=== PATIENT | female | born 2000 | race African-American/Black ===

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

== ENCOUNTER 2022-04-04 17:30 | Emergency (ER) | payer OTHER ==
[2022-04-04 18:24] VITALS: BP 104/71; PULSE 83; RESP 18; TEMP 98.4; BMI 23.6
[2022-04-04] MEDS ORDERED: ACETAMINOPHEN 325 MG TABLET (FP) PO ONE (18:44)
[2022-04-04] MEDS ORDERED: IBUPROFEN 600 MG TABLET (FP) PO ONE ×2 (18:44→18:50)
[2022-04-04] MEDS ORDERED: ACETAMINOPHEN 325 MG TABLET (FP) ONE (18:49)
== END 2022-04-04 18:53 | disposition home or self-care (01) ==
LOC: JER 17:30 → JERFT 17:30
DX: K08.89 Other specified disorders of teeth and supporting structures (principal)
CPT/HCPCS: 99283-25

== ENCOUNTER 2023-07-06 16:38 | Emergency (ER) | payer OTHER ==
[2023-07-06 16:53] VITALS: BP 111/70; PULSE 71; RESP 16; TEMP 98.3; BMI 19.8
[2023-07-06 18:19] LABS: HCG,QUALITATIVE URINE Negative
[2023-07-06 18:20] LABS: EPI CELLS 11 /uL (0-25.1); HYALINE CASTS 1 /uL (0-3.1); URINE APPEARANCE TURBID; URINE BACTERIA 371 /uL (0-1359); URINE BILIRUBIN NEGATIVE (NEGATIVE); URINE COLOR YELLOW; URINE GLUCOSE (UA) NEGATIVE (NEGATIVE); URINE KETONE TRACE (NEGATIVE); URINE LEUK ESTERASE NEGATIVE (NEGATIVE); URINE NITRITE NEGATIVE (NEGATIVE); URINE PROTEIN NEGATIVE (NEGATIVE); URINE RBC 30.4 /uL (0-23.9); URINE WBC 3 /uL (0-25.8)
[2023-07-06 20:33] LABS: SYPHILIS W/ RPR CONF NON-REACTIVE (NONREACTIVE)
[2023-07-06 21:02] LABS: HIV INTERPRETATION NEGATIVE (NEGATIVE)
== END 2023-07-06 19:08 | disposition home or self-care (01) ==
LOC: JERFT 16:38 → JER 16:38 → JERFT 19:08
DX: N89.8 Other specified noninflammatory disorders of vagina (principal); N93.9 Abnormal uterine and vaginal bleeding, unspecified
CPT/HCPCS: 36415; 81003; 84703; 86780; 87070; 87086; 87205; 87389; 87491; 87591; 87661; 99283-25